=== PATIENT | male | born 1935 | race Two or more races ===

== ENCOUNTER → 2016-11-24 | Outpatient (CLI) | payer MEDICARE, OTHER ==
[2016-11-24 10:54] LABS: ALANINE AMINOTRANSFERASE 34 U/L (21-72); ALBUMIN 3.9 g/dL (3.5-5.0); ALKALINE PHOSPHATASE 23 U/L (38-126); ASPARTATE AMINO TRANSFERASE 31 U/L (17-59); BILIRUBIN,TOTAL 0.6 mg/dL (0.2-1.3); Direct HDL 20 mg/dL (>40); TOTAL PROTEIN 6.5 g/dL (6.3-8.2); TRIGLYCERIDES 198 mg/dL (<150)
[2016-11-24 11:06] LABS: DIRECT LDL < 30 mg/dL (<100); VLDL CHOLESTEROL 39.6 mg/dL (10-31)
== END ==
LOC: OD 09:23
PROVIDERS: ATTEND Internal Medicine Cardiovascular Disease
DX: Z79.899 Other long term (current) drug therapy (principal)
CPT/HCPCS: 36415; 80061; 80076

== ENCOUNTER → 2017-07-01 | Outpatient (CLI) | payer MEDICARE, OTHER ==
[2017-07-01 11:45] LABS: ALANINE AMINOTRANSFERASE 32 U/L (21-72); ALBUMIN 4.2 g/dL (3.5-5.0); ANION GAP 11 (5-19); ASPARTATE AMINO TRANSFERASE 30 U/L (17-59); BILIRUBIN,DIRECT 0.5 mg/dL (0.0-0.4); BILIRUBIN,TOTAL 0.6 mg/dL (0.2-1.3); BLOOD UREA NITROGEN 29 mg/dL (7-20); CALCIUM 10.1 mg/dL (8.4-10.2); CARBON DIOXIDE 30 mmol/L (22-30); CHLORIDE 101 mmol/L (98-107); CREATININE RESULT 1.52 mg/dL (0.52-1.25); Direct HDL 17 mg/dL (>40); GLUCOSE 96 mg/dL (75-110); NEONATAL BILIRUBIN RESULT 0.1 mg/dL (0.1-1.1); POTASSIUM 4.6 mmol/L (3.6-5.0); SODIUM 141.6 mmol/L (137-145); TOTAL PROTEIN 6.8 g/dL (6.3-8.2); TRIGLYCERIDES 166 mg/dL (<150)
[2017-07-01 11:55] LABS: ALKALINE PHOSPHATASE < 20 U/L (38-126); DIRECT LDL < 30 mg/dL (<100); VLDL CHOLESTEROL 33.2 mg/dL (10-31)
== END ==
LOC: OD 10:07
PROVIDERS: ATTEND Internal Medicine Cardiovascular Disease
DX: E78.2 Mixed hyperlipidemia (principal); Z79.899 Other long term (current) drug therapy
CPT/HCPCS: 36415; 80048; 80061; 80076; 80162

== ENCOUNTER → 2017-08-31 | Outpatient (CLI) | payer MEDICARE, OTHER ==
[2017-08-31 10:02] LABS: CHOLESTEROL 127.08 mg/dL (0-200); Direct HDL 23 mg/dL (>40); TRIGLYCERIDES 142 mg/dL (<150)
[2017-08-31 10:12] LABS: DIRECT LDL 67 mg/dL (<100)
== END ==
LOC: OD 09:02
PROVIDERS: ATTEND Internal Medicine Cardiovascular Disease
DX: E78.2 Mixed hyperlipidemia (principal)
CPT/HCPCS: 36415; 80061

== ENCOUNTER → 2019-02-03 | Outpatient (CLI) | payer MEDICARE, OTHER ==
[2019-02-03 10:37] LABS: HEMATOCRIT 39.2 % (37.9-51.0); HEMOGLOBIN 13.6 g/dL (13.5-17.0); MEAN CORPUSCULAR HEMOGLOBIN 33.8 pg (27.0-33.4); MEAN CORPUSCULAR HGB CONC 34.7 g/dL (32.0-36.0); MEAN CORPUSCULAR VOLUME 98 fl (80-97); PLATELET COUNT 295 10^3/uL (150-450); RED BLOOD COUNT 4.03 10^6/uL (4.35-5.55); RED CELL DISTRIBUTION WIDTH 16.7 % (11.5-14.0); WHITE BLOOD COUNT 9.2 10^3/uL (4.0-10.5)
[2019-02-03 11:10] LABS: ALANINE AMINOTRANSFERASE 35 U/L (21-72); ALBUMIN 4.2 g/dL (3.5-5.0); ALKALINE PHOSPHATASE 25 U/L (38-126); ANION GAP 7 (5-19); ASPARTATE AMINO TRANSFERASE 47 U/L (17-59); BILIRUBIN,DIRECT 0.4 mg/dL (0.0-0.4); BILIRUBIN,TOTAL 0.5 mg/dL (0.2-1.3); BLOOD UREA NITROGEN 32 mg/dL (7-20); CALCIUM 10.1 mg/dL (8.4-10.2); CARBON DIOXIDE 27 mmol/L (22-30); CHLORIDE 102 mmol/L (98-107); CHOLESTEROL 154.39 mg/dL (0-200); DIGOXIN 1.25 ng/mL (0.8-2.0); GLUCOSE 129 mg/dL (75-110); POTASSIUM 4.8 mmol/L (3.6-5.0); SODIUM 135.9 mmol/L (137-145); TOTAL PROTEIN 7.2 g/dL (6.3-8.2); TRIGLYCERIDES 295 mg/dL (<150)
[2019-02-03 11:19] LABS: DIRECT LDL 73 mg/dL (<100)
== END ==
LOC: LAB 10:11
PROVIDERS: ATTEND Internal Medicine Cardiovascular Disease
DX: I25.10 Atherosclerotic heart disease of native coronary artery without angina pectoris (principal); I10 Essential (primary) hypertension; R25.2 Cramp and spasm; E78.2 Mixed hyperlipidemia
CPT/HCPCS: 36415; 80048; 80061; 80076; 80162; 83735; 85027

== ENCOUNTER → 2019-03-21 | Outpatient (CLI) | payer MEDICARE, OTHER ==
[2019-03-21 08:33] LABS: HEMATOCRIT 39.8 % (37.9-51.0); HEMOGLOBIN 13.7 g/dL (13.5-17.0); MEAN CORPUSCULAR HEMOGLOBIN 33.2 pg (27.0-33.4); MEAN CORPUSCULAR HGB CONC 34.4 g/dL (32.0-36.0); MEAN CORPUSCULAR VOLUME 97 fl (80-97); PLATELET COUNT 253 10^3/uL (150-450); RED BLOOD COUNT 4.13 10^6/uL (4.35-5.55); RED CELL DISTRIBUTION WIDTH 15.9 % (11.5-14.0); WHITE BLOOD COUNT 8.4 10^3/uL (4.0-10.5)
== END ==
LOC: LAB 08:19
PROVIDERS: ATTEND Internal Medicine Cardiovascular Disease
DX: I10 Essential (primary) hypertension (principal); Z79.899 Other long term (current) drug therapy
CPT/HCPCS: 36415; 85027

== ENCOUNTER → 2019-05-26 | Outpatient (CLI) | payer MEDICARE, OTHER ==
[2019-05-26 09:36] LABS: HEMATOCRIT 41.6 % (37.9-51.0); HEMOGLOBIN 14.1 g/dL (13.5-17.0); MEAN CORPUSCULAR HEMOGLOBIN 32.7 pg (27.0-33.4); MEAN CORPUSCULAR HGB CONC 33.8 g/dL (32.0-36.0); MEAN CORPUSCULAR VOLUME 97 fl (80-97); PLATELET COUNT 242 10^3/uL (150-450); RED BLOOD COUNT 4.31 10^6/uL (4.35-5.55); RED CELL DISTRIBUTION WIDTH 16.2 % (11.5-14.0); WHITE BLOOD COUNT 7.3 10^3/uL (4.0-10.5)
[2019-05-26 09:44] LABS: ALANINE AMINOTRANSFERASE 28 U/L (21-72); ALBUMIN 4.3 g/dL (3.5-5.0); ANION GAP 10 (5-19); ASPARTATE AMINO TRANSFERASE 40 U/L (17-59); BILIRUBIN,DIRECT 0.4 mg/dL (0.0-0.4); BILIRUBIN,TOTAL 0.7 mg/dL (0.2-1.3); BLOOD UREA NITROGEN 28 mg/dL (7-20); CALCIUM 10.2 mg/dL (8.4-10.2); CARBON DIOXIDE 27 mmol/L (22-30); CHLORIDE 103 mmol/L (98-107); CHOLESTEROL 162.55 mg/dL (0-200); DIGOXIN 1.55 ng/mL (0.8-2.0); GLUCOSE 75 mg/dL (75-110); NEONATAL BILIRUBIN RESULT 0.3 mg/dL (0.1-1.1); POTASSIUM 4.6 mmol/L (3.6-5.0); TOTAL PROTEIN 7.2 g/dL (6.3-8.2); TRIGLYCERIDES 207 mg/dL (<150)
[2019-05-26 09:53] LABS: DIRECT LDL 100 mg/dL (<100)
[2019-05-26 09:58] LABS: ALKALINE PHOSPHATASE < 20 U/L (38-126); VLDL CHOLESTEROL 41.4 mg/dL (10-31)
== END ==
LOC: LAB 08:52
PROVIDERS: ATTEND Internal Medicine Cardiovascular Disease
DX: E78.2 Mixed hyperlipidemia (principal); E10.9 Type 1 diabetes mellitus without complications; I25.10 Atherosclerotic heart disease of native coronary artery without angina pectoris; I10 Essential (primary) hypertension; D64.9 Anemia, unspecified; Z79.899 Other long term (current) drug therapy
CPT/HCPCS: 36415; 80048; 80061; 80076; 80162; 83036; 85027